=== PATIENT | female | born 1970 | race Caucasian/White ===

== ENCOUNTER 2017-12-30 10:10 | Emergency (ER) | payer BC, MEDICAID ==
[2017-12-30] MEDS ORDERED: LORazepam 1 MG Tab PO ONE (10:38)
--- NOTE | 2017-12-30 10:43 | EDM.PDOC ---
ED HPI GENERAL MEDICAL PROBLEM - General Chief Complaint: Asthma Stated Complaint: MEDICAL [facility] Time Seen by Provider: 12/30/17 10:31 Source of Information: Reports: Patient, RN Notes Reviewed History Limitations: Reports: No Limitations - History of Present Illness INITIAL COMMENTS - FREE TEXT/NARRATIVE: 47-year-old female presents emergency department today via EMS services for an asthma exacerbation. She states she has a known history of asthma but she was at a counseling session earlier today she is currently going to custody issues with her children became very upset at the counseling session and then had difficulty breathing EMS services were called. 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: Musculoskeletal History: Reports: Other (See Below) Other Musculoskeletal History: knee pain Psychiatric History: Reports: Anxiety - Past Surgical History HEENT Surgical History: Reports: Adenoidectomy, Tonsillectomy Social & Family History - Tobacco Use Smoking Status *Q: Current Every Day Smoker Years of Tobacco use: 15 Packs/Tins Daily: 0.5 - Caffeine Use Caffeine Use: Reports: Coffee - Recreational Drug Use Recreational Drug Use: Yes Drug Use in Last 12 Months: Yes Recreational Drug Type: Reports: Methamphetamine Recreational Drug Use Frequency: Not Used In Over 4 Months ED ROS GENERAL - Review of Systems Review Of Systems: See Below Constitutional: Reports: No Symptoms HEENT: Reports: No Symptoms Respiratory: Reports: Shortness of Breath, Wheezing Cardiovascular: Reports: No Symptoms GI/Abdominal: Reports: No Symptoms : Reports: No Symptoms Psychiatric: Reports: Anxiety ED EXAM, GENERAL - Physical Exam Exam: See Below Exam Limited By: No Limitations General Appearance: Alert, WD/WN, No Apparent Distress Neck: Normal Inspection, Supple, Non-Tender, Full Range of Motion Respiratory/Chest: No Respiratory Distress, No Accessory Muscle Use, Wheezing Cardiovascular: Regular Rate, Rhythm, No Murmur Course - Vital Signs Last Recorded V/S: Last Vital Signs Temp 97.5 F 12/30/17 10:15 Pulse 88 12/30/17 10:15 Resp 20 12/30/17 10:15 BP 141/75 H 12/30/17 10:15 Pulse Ox 96 12/30/17 10:15 - Orders/Labs/Meds Orders: Active Orders 24 hr Category Date Time Status LORazepam [Ativan] Med 12/30/17 10:38 Once 1 mg PO ONETIME ONE Departure - Departure Time of Disposition: 10:43 Disposition: Home, Self-Care 01 Condition: Good Clinical Impression: Panic attack - Discharge Information Referrals: PCP,None [Primary Care Provider] - Additional Instructions: Use Ativan as needed to control anxiety symptoms, take full course of steroids for your asthma, start the Advair discus to get better control of your asthma, please follow-up with your regular doctor in 3-5 days for reevaluation, - My Orders Last 24 Hours: My Active Orders 12/30/17 10:38 LORazepam [Ativan] 1 mg PO ONETIME ONE - Assessment/Plan Last 24 Hours: My Active Orders 12/30/17 10:38 LORazepam [Ativan] 1 mg PO ONETIME ONE Plan: Assessment Acuity = acute Site and laterality = panic attack complicated in a patient with known history of mild intermittent asthma Etiology = generalized anxiety disorder Manifestations = wheezing Location of injury = Home Lab values = none Plan Plan is prescription for Ativan 1 mg by mouth 3 times a day when necessary total #10, short course of prednisone 20 mg once a day for 5 days followed by Advair discus 1 puff every 12 hours 100 g / 50 g, follow-up with primary care 3-5 days for reevaluation This note was dictated using [employer] voice recognition software please call with any questions on syntax or [place].
== END 2017-12-30 11:01 | disposition home or self-care (01) ==
LOC: JP.ED 10:10
DX: F41.0 Panic disorder [episodic paroxysmal anxiety] (principal); E78.00 Pure hypercholesterolemia, unspecified; F17.210 Nicotine dependence, cigarettes, uncomplicated; J45.909 Unspecified asthma, uncomplicated; Z79.899 Other long term (current) drug therapy
CPT/HCPCS: 99283; 99285; A9270

== ENCOUNTER 2018-03-17 09:12 | Emergency (ER) | payer MEDICAID ==
--- NOTE | 2018-03-17 09:54 | EDM.PDOC ---
ED HPI GENERAL MEDICAL PROBLEM - General Chief Complaint: Back Pain or Injury Stated Complaint: LOW BACK PAIN Time Seen by Provider: 03/17/18 09:53 Source of Information: Reports: Patient History Limitations: Reports: No Limitations - History of Present Illness INITIAL COMMENTS - FREE TEXT/NARRATIVE: Pt has severe pain in the upper lumbar area. She has not fallen or had a injury. Onset: Gradual, Other ( Last 3-4 days. 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: Musculoskeletal History: Reports: Other (See Below) Other Musculoskeletal History: knee pain Psychiatric History: Reports: Anxiety - Past Surgical History HEENT Surgical History: Reports: Adenoidectomy, Tonsillectomy Cardiovascular Surgical History: Reports: None Respiratory Surgical History: Reports: None Social & Family History - Tobacco Use Smoking Status *Q: Current Every Day Smoker Years of Tobacco use: 13 Packs/Tins Daily: 0.5 - Caffeine Use Caffeine Use: Reports: Coffee - Recreational Drug Use Recreational Drug Use: Yes Drug Use in Last 12 Months: No Recreational Drug Type: Reports: Marijuana/Hashish, 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 ) : Reports: Flank Pain, Other (upper lumbar pain) Musculoskeletal: Reports: No Symptoms Skin: Reports: No Symptoms Neurological: Reports: No Symptoms ED EXAM,LOWER BACK PAIN/INJURY - Physical Exam Exam: See Below Text/Narrative:: pt arrived with pain her upper lumbar area. She does not think she injured it. She has no urine symptoms. She has not had back problems. She hurts alot more with any movement. Exam Limited By: No Limitations General Appearance: Alert, Moderate Distress Ears: Normal TMs Nose: Normal Inspection Throat/Mouth: Normal Inspection Head: Atraumatic Neck: Normal Inspection Respiratory/Chest: No Respiratory Distress Cardiovascular: Regular Rate, Rhythm GI/Abdominal: Non-Tender Back Exam: Other (pt has muscle tightness and tenderness in the upper lumbar area. ) Course - Vital Signs Last Recorded V/S: Last Vital Signs Temp 35.6 C 03/17/18 09:31 Pulse 85 03/17/18 09:31 Resp 20 03/17/18 09:31 BP 167/95 H 03/17/18 09:31 Pulse Ox 99 03/17/18 09:31 - Orders/Labs/Meds Orders: Active Orders 24 hr Category Date Time Status CULTURE URINE [RM] Stat Lab 03/17/18 10:14 Received DRUG SCREEN, URINE [URCHEM] Stat Lab 03/17/18 09:52 Ordered UA W/MICROSCOPIC [URIN] Urgent Lab 03/17/18 09:52 Ordered Labs: Laboratory Tests 03/17/18 03/17/18 03/17/18 Range/Units 09:52 09:52 09:52 WBC 7.4 (4.5-11.0) K/uL RBC 4.54 (3.30-5.50) M/uL Hgb 14.5 (12.0-15.0) g/dL Hct 44.0 (36.0-48.0) % MCV 97 (80-98) fL MCH 32 H (27-31) pg MCHC 33 (32-36) % Plt Count 320 (150-400) K/uL Neut % (Auto) 53 (36-66) % Lymph % (Auto) 33 (24-44) % [place] % (Auto) 10 H (2-6) % Eos % (Auto) 4 (2-4) % Baso % (Auto) 1 (0-1) % Urine Color Yellow Urine Appearance Slightly cloudy Urine pH 5.0 (4.5-8.0) Ur Specific [place] 1.020 (1.008-1.030) Urine Protein Negative (NEGATIVE) mg/dL Urine Glucose (UA) Normal (NEGATIVE) mg/dL Urine Ketones Negative (NEGATIVE) mg/dL Urine Occult Blood Moderate (NEGATIVE) Urine Nitrite Negative (NEGATIVE) Urine Bilirubin Negative (NEGATIVE) Urine Urobilinogen Normal (NORMAL) mg/dL Ur Leukocyte Esterase Moderate (NEGATIVE) Urine RBC 0-5 (0-5) Urine WBC 10-20 H (0-5) Ur Epithelial Cells Many Amorphous Sediment Few Urine Bacteria Not seen Urine Mucus Not seen Urine Opiates Screen Negative (NEGATIVE) Ur Oxycodone Screen Negative (NEGATIVE) Urine Methadone Screen Negative (NEGATIVE) Ur Propoxyphene Screen Negative (NEGATIVE) Ur Barbiturates Screen Negative (NEGATIVE) Ur Tricyclics Screen Negative (NEGATIVE) Ur Phencyclidine Scrn Negative (NEGATIVE) Ur Amphetamine Screen Negative (NEGATIVE) U Methamphetamines Scrn Negative (NEGATIVE) Urine MDMA Screen Negative (NEGATIVE) U Benzodiazepines Scrn Negative (NEGATIVE) U Cocaine Metab Screen Negative (NEGATIVE) U Marijuana (THC) Screen Positive H (NEGATIVE) Meds: Medications Discontinued Medications Generic Name Dose Route Start Last Admin Trade Name Nemo PRN Reason Stop Dose Admin Cyclobenzaprine HCl 5 mg 03/17/18 09:55 03/17/18 10:10 Flexeril PO 03/17/18 09:56 5 mg ONETIME ONE Administration Ketorolac Tromethamine 60 mg 03/17/18 09:56 03/17/18 10:10 Toradol IM 03/17/18 09:57 60 mg ONETIME ONE Administration Oxycodone/Acetaminophen 1 tab 03/17/18 09:56 03/17/18 10:10 Percocet 325-5 Mg PO 03/17/18 09:57 1 tab ONETIME ONE Administration - Re-Assessments/Exams Free Text/Narrative Re-Assessment/Exam: 03/17/18 10:21 pt had a neg drug screen except for marajauna. She stopped using marajauna 1 week ago. She was given torodol 60mg im and prcocet 5/325 , flexeril 5mg . She had excellent relief of her pain. She had some wbcs in her urine and a urine culture was set up. Departure - Departure Time of Disposition: 10:25 Disposition: Home, Self-Care 01 Condition: Fair Clinical Impression: Spasm of lumbar paraspinous muscle, UTI (urinary tract infection) - Discharge Information Instructions: Back Pain, Adult Referrals: Christel Diaz PA [Primary Care Provider] - Forms: ED Department Discharge Care Plan Goals: ice pack or moist heat to the lumbar area. Try to move around some several times daily, avoid heavy lifting and pulling, flexeril 10mg hs, torodol 10mg q6h prn for pain. cipro 500mg bid - My Orders Last 24 Hours: My Active Orders 03/17/18 09:52 DRUG SCREEN, URINE [URCHEM] Stat UA W/MICROSCOPIC [URIN] Urgent 03/17/18 10:14 CULTURE URINE [RM] Stat - Assessment/Plan Last 24 Hours: My Active Orders 03/17/18 09:52 DRUG SCREEN, URINE [URCHEM] Stat UA W/MICROSCOPIC [URIN] Urgent 03/17/18 10:14 CULTURE URINE [RM] Stat
[2018-03-17] MEDS ORDERED: Cyclobenzaprine 10 MG Tab PO ONE (09:55)
[2018-03-17] MEDS ORDERED: Ketorolac 60 MG/2 ML SDV IM ONE (09:56)
[2018-03-17] MEDS ORDERED: Acetaminophen/oxyCODONE 325-5 MG Tab PO ONE (09:56)
== END 2018-03-17 10:44 | disposition home or self-care (01) ==
LOC: JP.ED 09:12
DX: N39.0 Urinary tract infection, site not specified (principal); M62.830 Muscle spasm of back; F17.210 Nicotine dependence, cigarettes, uncomplicated; E78.00 Pure hypercholesterolemia, unspecified; F41.9 Anxiety disorder, unspecified; Z88.8 Allergy status to other drugs, medicaments and biological substances; Z79.899 Other long term (current) drug therapy
CPT/HCPCS: 36415; 80305; 81001; 85025; 87086; 96372; 99284; A9270; J1885; 99283